=== PATIENT | male | born 1990 | race Caucasian/White ===

== ENCOUNTER 2019-11-25 19:09 | Emergency (ER) | payer OTHER ==
[~2019-11-25] VITALS: Ht 177.8 cm; Wt 65.8 kg
[2019-11-25 19:15] VITALS: Ht 177.8 cm; Wt 65.8 kg
[2019-11-25 20:01] VITALS: BP 127/84
== END 2019-11-25 20:01 | disposition home or self-care (01) ==
LOC: ED 19:09
DX: J32.9 Chronic sinusitis, unspecified (principal)